=== PATIENT | male | born 1980 | race Caucasian/White ===

== ENCOUNTER 2018-12-05 21:35 | Emergency (ER) | payer OTHER ==
[~2018-12-05] VITALS: Ht 182.9 cm; Wt 83.9 kg
[2018-12-05] MEDS ORDERED: NAPROSYN500 MG PO (22:13)
[2018-12-05] MEDS ORDERED: MEDROLDOSEPACK PO (22:13)
[2018-12-05] MEDS ORDERED: NORFLEX100 MG PO (22:13)
[2018-12-05 22:23] VITALS: BP 141/95
== END 2018-12-05 22:28 | disposition home or self-care (01) ==
LOC: ER 21:35
DX: S39.012A Strain of muscle, fascia and tendon of lower back, initial encounter (principal); X50.1XXA Overexertion from prolonged static or awkward postures, initial encounter; Y92.89 Other specified places as the place of occurrence of the external cause; Y93.89 Activity, other specified; Y99.8 Other external cause status